=== PATIENT | male | born 1995 | race Two or more races ===

== ENCOUNTER 2017-05-04 16:53 | Emergency (ER) | payer OTHER ==
[2017-05-04 16:59] VITALS: TEMP 98.6
[2017-05-04] MEDS ORDERED: IPRATROPIUM/ALBUTEROL 3 ML DEYVIAL IH ONE (18:35)
--- NOTE | 2017-05-04 19:22 | EDPHY ---
H & P Time Seen by Provider: 05/04/17 19:01 HPI/ROS: CHIEF COMPLAINT: Cough x4 -5 weeks HISTORY OF PRESENT ILLNESS: This is a 21-year-old male presenting to the emergency department complaining of cough for more than 4-5 weeks. Patient states he thought maybe it was allergies in the beginning but cough symptoms have worsened over the past week productive yellow and green. Intermittent shortness of breath with activity, coughing fits that causes vomiting. Denies any fever but has felt like he has had chills. Reports having asthma as a child. Nonsmoker REVIEW OF SYSTEMS: Constitutional: No fever. Chills Eyes: No discharge. No blurred vision ENT: No sore throat. Ear pain Cardiovascular: No chest pain, no palpitations. Respiratory: Productive cough, intermittent shortness of breath Gastrointestinal: No abdominal pain. Cough induced vomiting x2 episodes Genitourinary: No hematuria. Musculoskeletal: No back pain. Skin: No rashes. Neurological: No headache. Smoking Status: Former smoker Physical Exam: General Appearance: Alert, no distress. Non ill-appearing Eyes: Pupils equal and round no pallor or injection. ENT, Mouth: TMs non serous middle ear effusion bilaterally. Posterior oropharynx no tonsillar hypertrophy uvula midline Mucous membranes moist. Respiratory: There are no retractions, positive cough noted on exam Cardiovascular: Regular rate and rhythm. Gastrointestinal: Abdomen is soft and nontender, no masses Neurological: No focal deficits. Answering questions appropriately Skin: Warm and dry, no rashes. Musculoskeletal: Neck is supple nontender. Extremities: symmetrical, full range of motion. Psychiatric: Patient is oriented X 3. Acting appropriately Constitutional: Initial Vital Signs Temperature (C) 37.0 C 05/04/17 16:57 Heart Rate 87 05/04/17 16:57 Respiratory Rate 16 05/04/17 16:57 Blood Pressure 147/70 H 05/04/17 16:57 O2 Sat (%) 98 05/04/17 16:57 O2 Delivery Mode Room Air Allergies/Adverse Reactions: aspirin Allergy (Verified 05/04/17 16:55) diclofenac sodium [From Voltaren] Allergy (Verified 05/04/17 16:55) nuts Allergy (Uncoded 05/04/17 16:55) Home Medications: Medication Instructions Recorded Albuterol Sulfate [Proair Hfa] 8.5 gm IH Q4-6PRN PRN #0 hfa.[email or web address] 05/04/17 Codeine Phosphate/Guaifenesin 5 ml PO Q6HRS #0 liquid 05/04/17 [Guaifenesin-Codeine Syrup] predniSONE 40 mg PO DAILY #10 tab 05/04/17 Medical Decision Making - Diagnostics Imaging Results: Imaging Impressions Chest X-Ray 05/04/17 18:35 Impression: Normal. ED Course/Re-evaluation: Discussed ED plan of care: Chest x-ray 1999: Discussed x-ray results negative for pneumonia, pleural effusion. 2015: Discharge home---> stable, discussed all discharge instructions with patient Differential Diagnosis: Other differential diagnosis considered but not limited to pneumonia, pleural effusion, and pneumothorax - Data Points Medications Given: Discontinued Medications Albuterol/Ipratropium (Duoneb) 3 ml IH EDNOW ONE Stop: 05/04/17 18:36 Last Admin: 05/04/17 18:40 Dose: 3 ml Prednisone (Prednisone) 40 mg PO EDNOW ONE Stop: 05/04/17 20:05 Last Admin: 05/04/17 20:35 Dose: 40 mg Departure - Departure Disposition: Home, Routine, Self-Care Clinical Impression: Bronchitis Condition: Good Instructions: Acute Bronchitis (ED), Bronchospasm (ED) Additional Instructions: 1. Take medications prescribed 2. Use inhaler as needed 3. If symptoms worsen, such as: Chest pain, shortness of breath, fever nausea vomiting return to the ER Referrals: NONE *PRIMARY CARE P,. [Primary Care Provider] - As per Instructions [facility],. [Clinic] - As per Instructions Prescriptions: Codeine Phosphate/Guaifenesin [Guaifenesin-Codeine Syrup] 5 ml PO Q6HRS #0 liquid Albuterol Sulfate [Proair Hfa] 8.5 gm IH Q4-6PRN PRN #0 hfa.aer.ad PRN Reason: Cough, Moderate predniSONE 40 mg PO DAILY #10 tab
[2017-05-04] MEDS ORDERED: predniSONE 20 MG TAB PO ONE (20:04)
[2017-05-04 20:37] VITALS: BP 110/82; PULSE 90; RESP 18; O2SAT 96
== END 2017-05-04 20:35 | disposition home or self-care (01) ==
DX: J40 Bronchitis, not specified as acute or chronic (principal); Z87.891 Personal history of nicotine dependence

== ENCOUNTER 2017-05-15 19:26 | Emergency (ER) | payer OTHER ==
[2017-05-15 19:33] VITALS: BP 132/73; TEMP 98.4
--- NOTE | 2017-05-15 20:03 | EDPHY ---
H & P Stated Complaint: SEEN A WEEK AGO, COUGH PAIN NOW WORSE Time Seen by Provider: 05/15/17 19:36 HPI/ROS: CHIEF COMPLAINT: Cough HISTORY OF PRESENT ILLNESS: 21-year-old male presents emergency department complaining of a cough x6 weeks. Patient was seen in the emergency department last week for the same symptoms. He was discharged with an albuterol inhaler and prednisone burst pack. Patient says his coughing during the day has lessened though he continues to cough at night and it is keeping him awake. It is productive in nature. Patient denies any other cold symptoms no nasal congestion, ear pain, sore throat. Patient reports pain in his chest with coughing. He does not smoke. He does calf pain or swelling, travel 8 weeks ago to [facility]. REVIEW OF SYSTEMS: A comprehensive 10 point review of systems is otherwise negative aside from elements mentioned in the history of present illness. Source: Patient Exam Limitations: No limitations - Personal History Current Tetanus/Diphtheria Vaccine: Yes - Medical/Surgical History Hx Asthma: Yes Hx Chronic Respiratory Disease: No Hx Diabetes: No Hx Cardiac Disease: No Hx Renal Disease: No Hx Cirrhosis: No Hx Alcoholism: No Hx HIV/AIDS: No Hx Splenectomy or Spleen Trauma: No Other PMH: G6PD DEFICIENCY. asthma - Social History Smoking Status: Former smoker Constitutional: Initial Vital Signs Temperature (C) 36.9 C 05/15/17 19:31 Heart Rate 110 H 05/15/17 19:31 Respiratory Rate 20 05/15/17 19:31 Blood Pressure 132/73 H 05/15/17 19:31 O2 Sat (%) 94 05/15/17 19:31 O2 Delivery Mode Room Air Allergies/Adverse Reactions: aspirin Allergy (Verified 05/04/17 16:55) diclofenac sodium [From Voltaren] Allergy (Verified 05/04/17 16:55) nuts Allergy (Uncoded 05/04/17 16:55) Home Medications: Medication Instructions Recorded Albuterol Sulfate [Proair Hfa] 8.5 gm IH Q4-6PRN PRN #0 hfa.aer.ad 05/04/17 Codeine Phosphate/Guaifenesin 5 ml PO Q6HRS #0 liquid 05/04/17 [Guaifenesin-Codeine Syrup] AZITHROMYCIN [Z-PACK] 250 mg PO DAILY #6 tab 05/15/17 Medical Decision Making ED Course/Re-evaluation: 21-year-old male presents with cough x6 weeks. He had a normal chest x-ray when he was seen in the emergency department 10 days ago, patient was discharged with an albuterol inhaler and prednisone burst. I will treat him with a Z-Rich to cover for pertussis. I have recommended that he uses albuterol inhaler more often. He has been given a primary care doctor for follow-up for any continued symptoms. He is given return precautions for worsening symptoms or concerns. Differential Diagnosis: Diagnosis considered but not limited to asthma exacerbation, pneumonia, pertussis, bronchitis Departure - Departure Disposition: Home, Routine, Self-Care Clinical Impression: Cough Condition: Good Instructions: Acute Bronchitis (ED) Additional Instructions: Use your albuterol inhaler 2 puffs every 4-6 hours as needed for cough. Take your antibiotics as prescribed. Return to the emergency department for any new symptoms, worsening symptoms or concerns. I have given you the name of a primary care doctor to follow up with if you have any continued symptoms that are not improving. Referrals: Nelson Austin MD [Medical Doctor] - As per Instructions (Primary care doctor on-call) Prescriptions: AZITHROMYCIN [Z-PACK] 250 mg PO DAILY #6 tab
[2017-05-15 20:15] VITALS: PULSE 108; RESP 18; O2SAT 95
== END 2017-05-15 20:14 | disposition home or self-care (01) ==
DX: R05 Cough (principal); J45.909 Unspecified asthma, uncomplicated; Z87.891 Personal history of nicotine dependence

== ENCOUNTER 2018-10-28 17:51 | Emergency (ER) | payer OTHER ==
[2018-10-28] MEDS ORDERED: ALBUTEROL 3 ML DEYVIAL IH ONE (18:18)
[2018-10-28 18:42] LABS: PLATELET COUNT 273 10^3/uL (150-400)
--- NOTE | 2018-10-28 18:47 | EDPHY ---
H & P Time Seen by Provider: 10/28/18 17:59 HPI/ROS: CHIEF COMPLAINT: Shortness of breath HISTORY OF PRESENT ILLNESS: 23-year-old male with a history of asthma presents emergency department complaining of shortness of breath. Patient states he has a history of asthma which is typically well controlled. While he was home in [facility], over the last 2 weeks, he complained of cold symptoms with the sore throat, congestion, nasal discharge, and slight cough. He had a fever on the 1st day but none since. He did not use his inhaler. He felt like his symptoms were improving, and he return to the [facility] on October 21. He now reports over the last 2 days he has had increasing shortness of breath. No fever. No chest pain. No diarrhea, lightheadedness, vomiting. No history of PEs or DVTs. No family history of PEs or DVTs. Flights were 6 hr as an 8 hr in duration with a 6 hr lay over. REVIEW OF SYSTEMS: A comprehensive 10 system review of systems was reviewed and is otherwise negative aside from elements mentioned in the history of present illness and medical decision making. PAST MEDICAL HISTORY: Asthma. SOCIAL HISTORY: Nonsmoker, uses marijuana, no alcohol. VITAL SIGNS Reviewed by me. GENERAL: Well-developed, well-nourished, complaining of shortness of breath. No obvious respiratory distress but the patient is somewhat tachypneic. HEENT: Atraumatic. Eyes: No icterus, no injection. Mouth: moist mucous membranes. No erythema or lesions. Neck: supple with no adenopathy. LUNGS: Very diminished breath sounds throughout. No wheezes auscultated. No rhonchi or rales. CARDIAC: Regular rate and rhythm, no rubs, murmurs or gallops. ABDOMEN: Soft, nontender, nondistended, bowel sounds normal. BACK: No CVA tenderness. EXTREMITIES: No trauma. No edema. Range of motion is normal throughout. NEURO: Alert and oriented, grossly nonfocal. SKIN: Warm and dry, no rash. PSYCHIATRIC: Normal mentation, no agitation. Smoking Status: Former smoker Constitutional: Initial Vital Signs Temperature (C) 36.8 C 10/28/18 17:55 Heart Rate 85 10/28/18 17:55 Respiratory Rate 18 10/28/18 17:55 Blood Pressure 138/72 H 10/28/18 17:55 O2 Sat (%) 94 10/28/18 17:55 O2 Delivery Mode Room Air Allergies/Adverse Reactions: aspirin Allergy (Verified 10/28/18 17:54) diclofenac sodium [From Voltaren] Allergy (Verified 10/28/18 17:54) nuts Allergy (Uncoded 05/04/17 16:55) Home Medications: Medication Instructions Recorded Albuterol Sulfate [Proair Hfa] 8.5 gm IH Q4-6PRN PRN #0 hfa.aer.ad 05/04/17 Azithromycin 250 - 500 mg PO DAILY #6 tablet 10/28/18 predniSONE [prednisone 10mg (RX)] 40 mg PO DAILY 2 Days tab 10/28/18 Medical Decision Making - Diagnostics Imaging Results: Imaging Impressions Chest X-Ray 10/28/18 18:55 Impression: Mild hyperinflation. No atelectasis or pneumonia. ED Course/Re-evaluation: Patient received a neb. D-dimer was negative. Chest x-ray shows no pneumonia, although the patient does have some increased peribronchial markings on my reading. Patient received prednisone 60 mg. On re-evaluation he is moving much improved air reports that he feels much better. Discharged with albuterol meter dose inhaler, prednisone, and azithromycin to use if not improving with the above measures. Differential Diagnosis: Differential diagnosis for the patient's shortness of breath was considered including but not limited to pulmonary infectious processes, asthma exacerbation , pulmonary emboli, pulmonary edema, bronchitis, dehydration, upper respiratory infection, influenza, and cardiac causes. - Data Points Laboratory Results: Laboratory Results 10/28/18 18:25 10/28/18 18:25 10/28/18 10/28/18 10/28/18 18:25 18:25 18:25 WBC 10.26 10^3/uL H 10^3/uL (3.80-9.50) RBC 4.71 10^6/uL 10^6/uL (4.40-6.38) Hgb 14.9 g/dL g/dL (13.7-17.5) Hct 43.6 % % (40.0-51.0) MCV 92.6 fL fL (81.5-99.8) MCH 31.6 pg pg (27.9-34.1) MCHC 34.2 g/dL g/dL (32.4-36.7) RDW 11.5 % % (11.5-15.2) Plt Count 273 10^3/uL 10^3/uL (150-400) MPV 9.8 fL fL (8.7-11.7) Neut % (Auto) 42.8 % % (39.3-74.2) Lymph % (Auto) 40.4 % % (15.0-45.0) [place] % (Auto) 5.4 % % (4.5-13.0) Eos % (Auto) 10.4 % H % (0.6-7.6) Baso % (Auto) 0.6 % % (0.3-1.7) Nucleat RBC Rel Count 0.0 % % (0.0-0.2) Absolute Neuts (auto) 4.40 10^3/uL 10^3/uL (1.70-6.50) Absolute Lymphs (auto) 4.14 10^3/uL H 10^3/uL (1.00-3.00) Absolute Monos (auto) 0.55 10^3/uL 10^3/uL (0.30-0.80) Absolute Eos (auto) 1.07 10^3/uL H 10^3/uL (0.03-0.40) Absolute Basos (auto) 0.06 10^3/uL 10^3/uL (0.02-0.10) Absolute Nucleated RBC 0.00 10^3/uL 10^3/uL (0-0.01) Immature Gran % 0.4 % % (0.0-1.1) Immature Gran # 0.04 10^3/uL 10^3/uL (0.00-0.10) D-Dimer 0.35 ug/mLFEU ug/mLFEU (0.00-0.50) Sodium 138 mEq/L mEq/L (135-145) Potassium 4.2 mEq/L mEq/L (3.5-5.2) Chloride 106 mEq/L mEq/L (97-110) Carbon Dioxide 23 mEq/l mEq/l (22-31) Anion Gap 9 mEq/L mEq/L (6-14) BUN 19 mg/dL mg/dL (7-23) Creatinine 1.0 mg/dL mg/dL (0.7-1.3) Estimated GFR > 60 Glucose 97 mg/dL mg/dL (70-100) Calcium 9.1 mg/dL mg/dL (8.5-10.4) Medications Given: Discontinued Medications Albuterol (Proventil Neb) 3 ml IH EDNOW ONE Stop: 10/28/18 18:19 Last Admin: 10/28/18 18:21 Dose: 3 ml Albuterol Sulfate (Proventil Inh Prepack) 1 mdi TAKEHOME EDNOW ONE Stop: 10/28/18 19:20 Last Admin: 10/28/18 19:30 Dose: 1 mdi Prednisone (Prednisone) 60 mg PO EDNOW ONE Stop: 10/28/18 19:22 Last Admin: 10/28/18 19:29 Dose: 60 mg Departure - Departure Disposition: Home, Routine, Self-Care Clinical Impression: Acute bronchitis Qualifiers: Bronchitis organism: unspecified organism Qualified Code(s): J20.9 - Acute bronchitis, unspecified Asthma Qualifiers: Asthma severity: mild Asthma persistence: unspecified Asthma complication type : with acute exacerbation Qualified Code(s): J45.901 - Unspecified asthma with ( acute) exacerbation Condition: Good Instructions: Acute Bronchitis (ED), How to Use a Nebulizer (ED), Bronchospasm (ED) Additional Instructions: Please use the albuterol meter inhaler as directed. Albuterol 2-4 puffs every 4 -6 hours as needed for shortness of breath. Please take the steroid as directed. Begin taking this tomorrow evening. Your 1st dose was given in the emergency department. You been given a prescription for azithromycin. Please begin taking if you're not improving as expected with the meter dose inhaler and steroids, or if your symptoms are worsening especially if you develop a fever. Referrals: NONE *PRIMARY CARE P,. [Primary Care Provider] - As per Instructions Yessenia Galeas MD [Medical Doctor] - As per Instructions (Follow-up with Dr. Galeas or with your primary care physician if you're not improving as expected) Prescriptions: Azithromycin 250 - 500 mg PO DAILY #6 tablet predniSONE [prednisone 10mg (RX)] 40 mg PO DAILY 2 Days tab
[2018-10-28] MEDS ORDERED: ALBUTEROL INH PREPACK MDI TAKEHOME ONE (19:19)
[2018-10-28] MEDS ORDERED: predniSONE 20 MG TAB PO ONE (19:21)
[2018-10-28 19:38] VITALS: BP 110/58
== END 2018-10-28 19:38 | disposition home or self-care (01) ==
DX: J20.9 Acute bronchitis, unspecified (principal); J45.901 Unspecified asthma with (acute) exacerbation
CPT/HCPCS: J7512; J7613